=== PATIENT | female | born 2000 | race Hispanic/Latino ===

== ENCOUNTER 2020-12-25 12:46 | Emergency (ER) | payer OTHER ==
[2020-12-25 14:33] LABS: Absolute Lymphocytes (CBC) 1.8 K/uL (0.7-4.9); Basophils % 0.8 % (0-1.3); Hematocrit 41.6 % (36.0-45.0); Lymphocytes % 24.8 % (15.3-44.8); MPV 8.1 fL (7.6-11.3); RBC Red Blood Cell Count 5.03 M/uL (3.86-4.86)
[2020-12-25 14:48] LABS: BUN Blood Urea Nitrogen 11 mg/dL (7-18); Bicarbonate 26 mmol/L (21-32); Glucose Level 101 mg/dL (74-106); Potassium 3.5 mmol/L (3.5-5.1); Sodium Level 142 mmol/L (136-145)
[2020-12-25] MEDS ORDERED: FENTANYL CITR 100 MCG/2 ML ONE (15:05)
--- NOTE | 2020-12-25 15:12 | RAD REPORT ---
EXAM DESCRIPTION: CT - Head Brain Wo Cont - 12/25/2020 2:56 pm CLINICAL HISTORY: Head injury status post fall COMPARISON: None. TECHNIQUE: Computed axial tomography of the head was obtained. IV contrast was not requested. All CT scans are performed using dose optimization technique as appropriate and may include automated exposure control or mA/KV adjustment according to patient size. FINDINGS: An intracranial bleed is not seen . The ventricles are normal in caliber. No extra-axial fluid collection is noted. Fluid within the sinuses/ mastoids is not seen. IMPRESSION: No acute intracranial abnormality is seen. If patient's symptoms persist MRI of the bra in would be recommended.
--- NOTE | 2020-12-25 16:01 | RAD REPORT ---
EXAM DESCRIPTION: Rose Marie Single View12/25/2020 3:12 pm CLINICAL HISTORY: Chest pain COMPARISON: none FINDINGS: The lungs appear clear of acute infiltrate. The heart is normal size IMPRESSION: No acute abnormalities displayed
--- NOTE | 2020-12-25 16:46 | EDPHYS ---
Physician Documentation [facility] Name: Martina Hoffman Age: 20 yrs Sex: Female : 2000 Arrival Date: 12/25/2020 Time: 12:47 Bed 28 Private MD: ED Physician Bebo Ozuna HPI: 12/25 14:56 This 20 yrs old Female presents to ER via EMS with complaints of Fall Injury, jr8 Back Pain, Flank Pain. 14:56 Details of fall: The patient fell from a height, dump truck . Onset: The jr8 symptoms/episode began/occurred acutely, today. Associated injuries: The patient sustained injury to the head, pain, injury to the chest, right flank. Severity of symptoms: At their worst the symptoms were moderate, in the emergency department the symptoms are unchanged. The patient has not experienced similar symptoms in the past. The patient has not recently seen a physician. Patient stated that the back of the dump truck started to open causing her to fall backward. Hit back of head, thorax, and back. Complains of right sided rib pain, flank pain, and head pain. Denies LOC . [employer]CHITECT: 14:28 LMP 04/2020 zb Historical: - Allergies: 13:46 No Known Allergies; zb - Home Meds: 13:46 hypertension med unknown [Active]; zb - PMHx: 13:46 Hypertension; zb - PSHx: 13:46 None; zb - Immunization history:: Adult Immunizations up to date. - Social history:: Smoking status: unknown. ROS: 14:56 Eyes: Negative for injury, pain, redness, and discharge, ENT: Negative for injury, jr8 pain, and discharge, Neck: Negative for injury, pain, and swelling, Abdomen/GI: Negative for abdominal pain, nausea, vomiting, diarrhea, and constipation, MS/Extremity: Negative for injury and deformity, Skin: Negative for injury, rash, and discoloration. 14:56 Cardiovascular: Positive for chest pain, with movement, of the right lateral chest wall. 14:56 Respiratory: Positive for shortness of breath. 14:56 Back: Positive for pain at rest, pain with movement, of the right flank. 14:56 Neuro: Positive for headache. Exam: 14:56 Eyes: Pupils equal round and reactive to light, extra-ocular motions intact. Lids and jr8 lashes normal. Conjunctiva and sclera are non-icteric and not injected. Cornea within normal limits. Periorbital areas with no swelling, redness, or edema. ENT: Nares patent. No nasal discharge, no septal abnormalities noted. Tympanic membranes are normal and external auditory canals are clear. Oropharynx with no redness, swelling, or masses, exudates, or evidence of obstruction, uvula midline. Mucous membranes moist. Neck: Trachea midline, no thyromegaly or masses palpated, and no cervical lymphadenopathy. Supple, full range of motion without nuchal rigidity, or vertebral point tenderness. No Meningismus. Cardiovascular: Regular rate and rhythm with a normal S1 and S2. No gallops, murmurs, or rubs. Normal PMI, no JVD. No pulse deficits. Respiratory: Lungs have equal breath sounds bilaterally, clear to auscultation and percussion. No rales, rhonchi or wheezes noted. No increased work of breathing, no retractions or nasal flaring. Abdomen/GI: Soft, non-tender, with normal bowel sounds. No distension or tympany. No guarding or rebound. No evidence of tenderness throughout. Skin: Warm, dry with normal turgor. Normal color with no rashes, no lesions, and no evidence of cellulitis. MS/ Extremity: Pulses equal, no cyanosis. Neurovascular intact. Full, normal range of motion. Neuro: Awake and alert, GCS 15, oriented to person, place, time, and situation. Cranial nerves II-XII grossly intact. Motor strength 5/5 in all extremities. Sensory grossly intact. 14:56 Chest/axilla: Inspection: normal, Palpation: tenderness, that is mild, of the right lateral posterior chest and right lateral anterior chest. 14:56 Back: pain, that is mild, of the right mid back, ROM is painful, normal spinal alignment noted. Vital Signs: 12:45 BP 122 / 87; Pulse 107; Resp 16; Pulse Ox 99% on R/A; zb 13:30 BP 130 / 85; Pulse 99; Resp 14; Temp 99.1; Pulse Ox 97% on R/A; Weight 106.59 kg; zb Height 5 ft. 1 in. (154.94 cm); Pain 8/10; 15:43 BP 120 / 80; Pulse 92; Resp 16; Pulse Ox 99% on R/A; zb 13:30 Body Mass Index 44.40 (106.59 kg, 154.94 cm) zb Procedures: 16:35 Ultrasound: Type: Fast exam, eFAST completed by myself. Subxyphoid, hepatorenal fossa, jr8 splenorenal fossa, and bladder were evaluated without acute findings of free fluid. Mild limitation in view due to body habitus. . MDM: 12:52 Patient medically screened. jr8 16:37 Data reviewed: vital signs, nurses notes, lab test result(s), radiologic studies, CT jr8 scan, plain films, ultrasound. Data interpreted: Pulse oximetry: on room air is 99 %. Interpretation: normal. Counseling: I had a detailed discussion with the patient and/or guardian regarding: the historical points, exam findings, and any diagnostic results supporting the discharge/admit diagnosis, lab results, radiology results, the need for outpatient follow up, a family practitioner, an OB/Gyne specialist, to return to the emergency department if symptoms worsen or persist or if there are any questions or concerns that arise at home. ED course: Discussed with patient that there were no acute CT, plain film, or US findings. That the US is not 100% sensitive. Recommend close f/u and if she feels worse to come back for further evaluation and possible CT scan of abdomen/pelvis as she is stable currently and without significant pain. Do not want to radiate abdomen unless absolutely necessary based on new results. Would do it though if needed. Patient good with this decision as well. As of now blood work was fine as well. . 12/25 12:52 Order name: Basic Metabolic Panel; Complete Time: 14:55 8 12/25 12:52 Order name: CBC with Diff; Complete Time: 14:46 jr8 12/25 12:52 Order name: Type And Screen; Complete Time: 16:10 jr8 12/25 12:58 Order name: Test, Serum; Complete Time: 14:46 jr8 12/25 14:45 Order name: Head Brain Wo Cont; Complete Time: 16:10 EDMS 12/25 12:52 Order name: Labs collected and sent; Complete Time: 14:03 jr8 12/25 14:47 Order name: XRAY Chest (1 view); Complete Time: 16:10 jr8 Administered Medications: 14:43 Drug: fentaNYL (PF) 50 mcg {Note: RASS 0.} Route: IVP; Site: left antecubital; zb 15:48 Follow up: Response: No adverse reaction; Pain is unchanged, physician notified zb Disposition: 12/26 07:45 Co-signature as Attending Physician, Bebo Ozuna MD I agree with the assessment and evans plan of care. Disposition: 12/25/20 16:45 Discharged to Home. Impression: Contusion Ribs, Acute pain due to trauma. - Condition is Stable. - Discharge Instructions: Rib Contusion, Muscle Pain, Adult. - Medication Reconciliation Form, Thank You Letter, Antibiotic Education, Prescription Opioid Use, Work release form, Family Work Release form. - Follow up: Private Physician; When: 10 - 14 days; Reason: Recheck today's complaints, Continuance of care, Re-evaluation by your physician. - Problem is new. - Symptoms have improved. - Notes: Tylenol for pain Follow up with [employer] for further evaluation of positive Signatures: Dispatcher [employer] [facility] Bebo Ozuna MD MD cha Roszak, Josh, PA PA jr8 Tonya Peña RN RN zb Corrections: (The following items were deleted from the chart) 12/25 14:45 13:00 Head C Spine CAP W Con+CT.RAD.BRZ ordered. [facility] 17:00 16:45 12/25/2020 16:45 Discharged to Home. Impression: Contusion Ribs; Acute pain due zb to trauma. Condition is Stable. Forms are Medication Reconciliation Form, Thank You Letter, Antibiotic Education, Prescription Opioid Use. Follow up: Private Physician; When: 10 - 14 days; Reason: Recheck today's complaints, Continuance of care, Re-evaluation by your physician. Problem is new. Symptoms have improved. jr8
--- NOTE | 2020-12-25 16:46 | ER ---
Nurse's Notes [facility] Name: Martina Hoffman Age: 20 yrs Sex: Female : 2000 Arrival Date: 12/25/2020 Time: 12:47 Bed 28 Private MD: Diagnosis: Contusion Ribs;Acute pain due to trauma Presentation: 12/25 12:45 Method Of Arrival: EMS: [facility] zb 12:45 Chief complaint: EMS states: patient was on the back of garbage truck she fell and hit zb the back of her head and back. c/o right flank pain. denies any LOC , blurred vision or headache. Coronavirus screen: At this time, the client does not indicate any symptoms associated with coronavirus-19. Ebola Screen: No symptoms or risks identified at this time. Initial Sepsis Screen: Does the patient meet any 2 criteria? No. Patient's initial sepsis screen is negative. Does the patient have a suspected source of infection? No. Patient's initial sepsis screen is negative. Risk Assessment: Do you want to hurt yourself or someone else? Patient reports no desire to harm self or others. Onset of symptoms was December 25, 2020. 12:45 Acuity: CALOS 3 zb [employer]: 14:28 LMP 04/2020 zb Historical: - Allergies: 13:46 No Known Allergies; zb - Home Meds: 13:46 hypertension med unknown [Active]; zb - PMHx: 13:46 Hypertension; zb - PSHx: 13:46 None; zb - Immunization history:: Adult Immunizations up to date. - Social history:: Smoking status: unknown. Screenin:30 Abuse screen: Denies threats or abuse. Denies injuries from another. Nutritional zb screening: No deficits noted. Tuberculosis screening: No symptoms or risk factors identified. Fall Risk None identified. Assessment: 13:30 General: Appears in no apparent distress. uncomfortable, Behavior is calm, cooperative, zb crying. Pain: Complains of pain in right flank Pain currently is 8 out of 10 on a pain scale. Quality of pain is described as aching, tender. Neuro: Level of Consciousness is awake, alert, obeys commands, Oriented to person, place, time, situation, Denies weakness blurred vision dizziness, numbness headache. Cardiovascular: No deficits noted. Respiratory: Reports pain with respiration since today Airway is patent Respiratory effort is even, unlabored, Respiratory pattern is regular, symmetrical, Breath sounds are clear bilaterally. Onset: The symptoms/episode began/occurred just prior to arrival. GI: No deficits noted. Derm: No signs and/or symptoms reported regarding the dermatologic system. Skin is intact, is healthy with good turgor. Musculoskeletal: Circulation, motion, and sensation intact. Range of motion: intact in all extremities. 14:30 Reassessment: Patient appears in no apparent distress at this time. Patient and/or zb family updated on plan of care and expected duration. Pain level reassessed. Patient is alert, oriented x 3, equal unlabored respirations, skin warm/dry/pink. notified ECP of pt pain and results. medication ordered, Orders changed. called and notified CT that patient would receive only a head CT w/o contrast. 15:30 Reassessment: Patient appears in no apparent distress at this time. Patient and/or zb family updated on plan of care and expected duration. Pain level reassessed. Patient is alert, oriented x 3, equal unlabored respirations, skin warm/dry/pink. patient remains at bedside. family at bedside. no changes at this time. Vital Signs: 12:45 BP 122 / 87; Pulse 107; Resp 16; Pulse Ox 99% on R/A; zb 13:30 BP 130 / 85; Pulse 99; Resp 14; Temp 99.1; Pulse Ox 97% on R/A; Weight 106.59 kg; zb Height 5 ft. 1 in. (154.94 cm); Pain 8/10; 15:43 BP 120 / 80; Pulse 92; Resp 16; Pulse Ox 99% on R/A; zb 13:30 Body Mass Index 44.40 (106.59 kg, 154.94 cm) zb ED Course: 12:47 Patient arrived in ED. am2 12:52 Jose Walker PA is PHCP. jr8 12:52 Bebo Ozuna MD is Attending Physician. jr8 12:57 Tonya Peña RN is Primary Nurse. zb 13:30 Patient has correct armband on for positive identification. Placed in gown. Bed in low zb position. Call light in reach. Adult w/ patient. Door closed. Noise minimized. 13:44 Triage completed. zb 14:00 Inserted saline lock: 20 gauge in right antecubital area, using aseptic technique. zb Blood collected. 14:28 Arm band placed on. zb 14:56 Head Brain Wo Cont In Process Unspecified. EDMS 15:03 CT completed. Patient moved to radiology via stretcher. vm2 15:11 XRAY Chest (1 view) In Process Unspecified. EDMS 16:58 No provider procedures requiring assistance completed. IV discontinued, intact, zb bleeding controlled, No redness/swelling at site. Pressure dressing applied. Administered Medications: 14:43 Drug: fentaNYL (PF) 50 mcg {Note: RASS 0.} Route: IVP; Site: left antecubital; zb 15:48 Follow up: Response: No adverse reaction; Pain is unchanged, physician notified zb Outcome: 16:45 Discharge ordered by . rajni 16:58 Discharged to home ambulatory, with family. zb 16:58 Condition: stable 16:58 Condition: good 16:58 Discharge instructions given to patient, family, Instructed on discharge instructions, follow up and referral plans. Demonstrated understanding of instructions, follow-up care. 17:00 Patient left the ED. zb Signatures: Dispatcher [employer] EDMS Jose Walker PA PA jr8 Kate Bejarano Victoria 2 Tonya Peña RN RN zb Corrections: (The following items were deleted from the chart) 14:31 13:30 BP 130 / 85; Pulse 99bpm; Resp 14bpm; Pulse Ox 97% RA; Temp 99.1F; 106.59 kg; zb Height 5 ft. 1 in.; BMI: 44.4; Pain 8/10; zb
[2020-12-25 17:51] VITALS: TEMP 99.1
[2020-12-25 18:29] VITALS: BP 120/80; O2SAT 99
== END 2020-12-25 17:00 | disposition home or self-care (01) ==
LOC: ER 12:46
DX: S20.20XA Contusion of thorax, unspecified, initial encounter (principal); G89.11 Acute pain due to trauma; W17.89XA Other fall from one level to another, initial encounter; I10 Essential (primary) hypertension
CPT/HCPCS: 85025; 80048; 36415; 86900; 86850; 84703; 86901; 70450; 71045; 96374; 99284; J3010

== ENCOUNTER 2020-12-30 18:28 | Emergency (ER) | payer OTHER ==
--- NOTE | 2020-12-30 20:28 | EDPHYS ---
Physician Documentation [facility] Name: Martina Hoffman Age: 20 yrs Sex: Female : 2000 Arrival Date: 12/30/2020 Time: 18:33 Bed 20 Private MD: ED Physician Bebo Ozuna HPI: 12/30 20:24 This 20 yrs old Female presents to ER via Ambulatory with complaints of jmm test, Back Pain. 20:24 Onset: The symptoms/episode began/occurred gradually. Associated signs and symptoms: jmm Pertinent negatives: fever, shortness of breath, vomiting. The patient has not experienced similar symptoms in the past. Patient is concerned she may be . Positive test on previous visit. Patient complains of ongoing rib pain. Imaging studies were negative. . Historical: - Allergies: 18:43 No Known Allergies; ll1 - PMHx: 18:36 Hypertension; ll1 - PSHx: 18:36 None; ll1 - Immunization history:: Flu vaccine is up to date. - Social history:: Smoking status: Patient reports the use of cigarette tobacco products, denies chronic smoking, but will smoke occasionally, Reported history of juuling and/or vaping. ROS: 20:24 Constitutional: Negative for fever, chills, and weight loss, Cardiovascular: Negative jmm for chest pain, palpitations, and edema, Respiratory: Negative for shortness of breath, cough, wheezing, and pleuritic chest pain. 20:24 Back: Positive for pain with movement. 20:24 All other systems are negative. Exam: 20:24 Constitutional: This is a well developed, well nourished patient who is awake, alert, jmm and in no acute distress. Head/Face: atraumatic. Eyes: EOMI, no conjunctival erythema appreciated ENT: Moist Mucus Membranes Neck: Trachea midline, Supple Chest/axilla: Normal chest wall appearance and motion. Cardiovascular: Regular rate and rhythm. No edema appreciated Respiratory: Normal respirations, no respiratory distress appreciated Abdomen/GI: Non distended, soft 20:24 Back: right flank pain on palpation. 20:24 Musculoskeletal/extremity: ROM: no acute changes. 20:24 Skin: Appearance: Color: normal in color. 20:24 Neuro: Orientation: is normal, Mentation: is normal, Memory: is normal. 20:24 Psych: Behavior/mood is pleasant, cooperative. Vital Signs: 18:41 Pulse 91; Resp 18; Temp 98.9; Pulse Ox 100% ; Weight 117.93 kg; Height 5 ft. 1 in. ll1 (154.94 cm); Pain 4/10; 18:44 BP 134 / 83; ll1 20:38 BP 126 / 74; Pulse 76; Resp 16; Pulse Ox 100% on R/A; ak2 18:41 Body Mass Index 49.13 (117.93 kg, 154.94 cm) ll1 MDM: 20:24 Patient medically screened. [facility] 20:26 Data reviewed: vital signs, nurses notes. Counseling: I had a detailed discussion with sharmila the patient and/or guardian regarding: the historical points, exam findings, and any diagnostic results supporting the discharge/admit diagnosis, the need for outpatient follow up, to return to the emergency department if symptoms worsen or persist or if there are any questions or concerns that arise at home. ED course: Patient advised to follow up with pcp and otherwise given strict return precautions. patient understood and agrees with the plan of care. . 12/30 18:35 Order name: Test, Serum [facility] 12/30 19:23 Order name: Test Serum, Qualitat; Complete Time: 19:52 EDMS Administered Medications: No medications were administered Disposition: 12/31 12:21 Co-signature as Attending Physician, Bebo Ozuna MD I agree with the assessment and evans plan of care. Disposition: 12/30/20 20:27 Discharged to Home. Impression: Strain of muscle and tendon of back wall of thorax. - Condition is Stable. - Discharge Instructions: Thoracic Strain. - Prescriptions for orphenadrine citrate 100 mg Oral Tablet Sustained Release - take 1 tablet by ORAL route 2 times per day As needed; 20 tablet. - Medication Reconciliation Form, Thank You Letter, Antibiotic Education, Prescription Opioid Use form. - Follow up: Private Physician; When: 2 - 3 days; Reason: Recheck today's complaints, Continuance of care, Re-evaluation by your physician. Signatures: Dispatcher [employer] EDMS Bebo Ouzna MD MD cha Mickail, Joel, PA PA [facility] Sandro Henson RN RN 1 Clinton Campbell ut2 Corrections: (The following items were deleted from the chart) 12/30 20:40 20:27 12/30/2020 20:27 Discharged to Home. Impression: Strain of muscle and tendon of ak2 back wall of thorax. Condition is Stable. Forms are Medication Reconciliation Form, Thank You Letter, Antibiotic Education, Prescription Opioid Use. Follow up: Private Physician; When: 2 - 3 days; Reason: Recheck today's complaints, Continuance of care, Re-evaluation by your physician. [email or web address]
--- NOTE | 2020-12-30 20:28 | ER ---
Nurse's Notes [facility] Name: Martina Hoffman Age: 20 yrs Sex: Female : 2000 Arrival Date: 12/30/2020 Time: 18:33 Bed 20 Private MD: Diagnosis: Strain of muscle and tendon of back wall of thorax Presentation: 12/30 18:41 Chief complaint: Patient states: Had a positive test here on Monday. Went to [facility], their test was negative. Came in for serum . Still has back pain from her accident at work last week. This would be her first if she is . Coronavirus screen: Client denies travel out of the [place] in the last 14 days. At this time, the client does not indicate any symptoms associated with coronavirus-19. Ebola Screen: Patient denies travel to an Ebola-affected area in the 21 days before illness onset. Initial Sepsis Screen: Does the patient meet any 2 criteria? No. Patient's initial sepsis screen is negative. Does the patient have a suspected source of infection? No. Patient's initial sepsis screen is negative. Risk Assessment: Do you want to hurt yourself or someone else? Patient reports no desire to harm self or others. Onset of symptoms was December 25, 2020. 18:41 Method Of Arrival: Ambulatory [facility] 18:41 Acuity: CALOS 3 ll1 Triage Assessment: 20:22 General: Appears in no apparent distress. Behavior is calm, cooperative. Pain: Denies ak2 pain. Musculoskeletal: Historical: - Allergies: 18:43 No Known Allergies; ll1 - PMHx: 18:36 Hypertension; ll1 - PSHx: 18:36 None; ll1 - Immunization history:: Flu vaccine is up to date. - Social history:: Smoking status: Patient reports the use of cigarette tobacco products, denies chronic smoking, but will smoke occasionally, Reported history of juuling and/or vaping. Screenin:22 Abuse screen: Denies threats or abuse. Denies injuries from another. Nutritional ak2 screening: No deficits noted. Tuberculosis screening: No symptoms or risk factors identified. Fall Risk None identified. Vital Signs: 18:41 Pulse 91; Resp 18; Temp 98.9; Pulse Ox 100% ; Weight 117.93 kg; Height 5 ft. 1 in. ll1 (154.94 cm); Pain 4/10; 18:44 BP 134 / 83; ll1 20:38 BP 126 / 74; Pulse 76; Resp 16; Pulse Ox 100% on R/A; ak2 18:41 Body Mass Index 49.13 (117.93 kg, 154.94 cm) 1 ED Course: 18:33 Patient arrived in ED. am2 18:35 Arm band placed on. ll1 18:40 Edison Chun PA is PHCP. nette 18:41 Bebo Ozuna MD is Attending Physician. [facility] 18:43 Triage completed. ll1 18:50 Test, Serum Sent. ll1 20:21 Clinton Campbell is Primary Nurse. ak2 20:22 No apparent distress. ak2 20:22 Patient has correct armband on for positive identification. ak2 20:22 No provider procedures requiring assistance completed. ak2 20:40 Patient did not have IV access during this emergency room visit. ak2 Administered Medications: No medications were administered Outcome: 20:27 Discharge ordered by . [facility] 20:38 Discharged to home ambulatory. ak2 20:38 Condition: good 20:38 Discharge instructions given to patient. 20:40 Patient left the ED. ak2 Signatures: Edison Chun PA PA jmm Moreno, Amanda am2 Sandro Henson RN RN [facility] Clinton Campbell ak2
[2020-12-30 21:04] VITALS: TEMP 98.9; O2SAT 100
[2020-12-30 21:06] VITALS: BP 126/74
== END 2020-12-30 20:40 | disposition home or self-care (01) ==
LOC: ER 18:28
DX: S29.012A Strain of muscle and tendon of back wall of thorax, initial encounter (principal); I10 Essential (primary) hypertension; F17.210 Nicotine dependence, cigarettes, uncomplicated
CPT/HCPCS: 36415; 84703; 99283